=== PATIENT | female | born 1995 | race Hispanic/Latino ===

== ENCOUNTER 2017-03-11 20:54 | Emergency (ER) | payer OTHER ==
[2017-03-11 21:01] VITALS: BP 131/82; PULSE 69; RESP 18; TEMP 98.3; O2SAT 100
--- NOTE | 2017-03-11 21:36 | ED PDOC ---
HPI: Female Pain Time Seen by Provider: 03/11/17 21:25 Chief Complaint (Nursing): Female Genitourinary Chief Complaint (Provider): Female Genitourinary History Per: Patient History/Exam Limitations: no limitations Onset/Duration Of Symptoms: Hrs (since 6:00 this morning) Current Symptoms Are (Timing): Still Present Additional Complaint(s): Hien Rodrigues is a 22 year old female with a history of UTIs that presents to the ED with a chief complaint of urinary frequency and a dull, aching pain in her abdomen that began around 6:00 this morning. Patient states that due to the numerous amounts of UTIs she has had in the past, she suspects that she currently has one, and is requesting antibiotics. Past Medical History Reviewed: Historical Data, Nursing Documentation, Vital Signs Vital Signs: Last Vital Signs Temp 98.3 F 03/11/17 20:59 Pulse 69 03/11/17 20:59 Resp 18 03/11/17 20:59 BP 131/82 03/11/17 20:59 Pulse Ox 100 03/11/17 20:59 - Medical History Other PMH: UTIs - Family History Family History: States: Unknown Family Hx - Home Medications Home Medications: Ambulatory Orders Medication Instructions Recorded Ciprofloxacin HCl [Cipro] 500 mg PO BID #6 tablet 03/11/17 Ibuprofen [Motrin] 600 mg PO Q8 PRN #21 tab 03/11/17 Phenazopyridine HCl [Pyridium] 100 mg PO BID PRN #6 tablet 03/11/17 - Allergies Allergies/Adverse Reactions: Allergies Allergy/AdvReac Type Severity Reaction Status Date / Time No Known Allergies Allergy Verified 03/11/17 20:59 Review of Systems Gastrointestinal: Positive for: Abdominal Pain (dull, aching) Genitourinary Female: Positive for: Frequency Physical Exam - Reviewed Nursing Documentation Reviewed: Yes Vital Signs Reviewed: Yes - Physical Exam Appears: Positive for: Non-toxic, No Acute Distress Head Exam: Positive for: ATRAUMATIC, NORMOCEPHALIC Skin: Positive for: Normal Color, Warm Cardiovascular/Chest: Positive for: Regular Rate, Rhythm. Negative for: Murmur Respiratory: Positive for: Normal Breath Sounds. Negative for: Wheezing Gastrointestinal/Abdominal: Positive for: Normal Exam, Soft. Negative for: Tenderness Neurologic/Psych: Positive for: Alert, Oriented. Negative for: Motor/Sensory Deficits - Laboratory Results Urine POC: Negative Urine dip results: Positive for: Leukocyte Esterase, Blood. Negative for: Nitrate, Ketones, Glucose, Bilirubin, Protein - ECG O2 Sat by Pulse Oximetry: 100 (RA) Pulse Ox Interpretation: Normal Medical Decision Making Medical Decision Making: Impression: UTI Plan: * Urine dipstick * Urine * Urine culture * Urinalysis * Reevaluation Scribe Attestation: Documented by Sarah Machado, acting as a scribe for Shoshana Diggs PA-C. Provider Scribe Attestation: All medical record entries made by the Scribe were at my direction and personally dictated by me. I have reviewed the chart and agree that the record accurately reflects my personal performance of the history, physical exam, medical decision making, and the department course for this patient. I have also personally directed, reviewed, and agree with the discharge instructions and disposition. Disposition - Clinical Impression Clinical Impression: Urinary tract infection - Patient ED Disposition Is Patient to be Admitted: No - Disposition Disposition: Routine/Home Disposition Time: 22:00 Condition: FAIR Prescriptions: Ciprofloxacin HCl [Cipro] 500 mg PO BID #6 tablet Ibuprofen [Motrin] 600 mg PO Q8 PRN #21 tab PRN Reason: Pain, Moderate (4-7) Phenazopyridine HCl [Pyridium] 100 mg PO BID PRN #6 tablet PRN Reason: Urinary Discomt Instructions: Urinary Tract Infection in Women (GEN) Forms: Freezing Point ([facility])
[2017-03-11 22:15] LABS: RBC URINE 6 /hpf (0-3); URINE BACTERIA OCC (<OCC); URINE BILIRUBIN NEGATIVE (NEGATIVE); URINE BLOOD LARGE (NEGATIVE); URINE COLOR YELLOW (YELLOW); URINE GLUCOSE (UA) NEG (Normal); URINE KETONE NEGATIVE (NEGATIVE); URINE LEUKOCYTE ESTERASE LARGE Leu/uL (Negative); URINE PROTEIN NEGATIVE (NEGATIVE); URINE UROBILINOGEN 0.2-1.0 mg/dL (0.2-1.0); WBC URINE 165 /hpf (0-5)
== END 2017-03-11 22:20 | disposition home or self-care (01) ==
LOC: H.ER 20:54
DX: N39.0 Urinary tract infection, site not specified (principal)